=== PATIENT | female | born 1950 | race Two or more races ===

== ENCOUNTER 2023-10-25 21:04 | Inpatient (IN) | payer OTHER ==
[~2023-10-25] VITALS: Ht 160 cm; Wt 72.7 kg
[2023-10-25 21:44] LABS: Basophils # (auto) 0.1 10 ^3/uL (0-0.2); Basophils % (auto) 0.7 % (0.0-2.0); Eosinophils # (auto) 0 10 ^3/uL (0-0.8); Eosinophils % (auto) 0.4 % (0.0-7.0); Hematocrit 32.8 % (36.0-46.0); Hemoglobin 10.6 g/dL (12.2-16.2); Lymphocytes # (auto) 1.7 10 ^3/uL (0.4-5.4); Lymphocytes % (auto) 14.2 % (10.0-50.0); Mean Corpuscular Hemoglobin 28.2 pg (28.0-32.0); Mean Corpuscular Hgb Conc. 32.2 g/dL (32.0-36.0); Mean Corpuscular Volume 87.4 fL (80.0-100.0); Monocytes # (auto) 1.5 10 ^3/uL (0-1.3); Monocytes % (auto) 12.5 % (0.0-12.0); Neutrophils # (auto) 8.5 10 ^3/uL (1.6-8.6); Neutrophils % (auto) 72.2 % (37.0-80.0); Nucleated Red Blood Cells % 0.1 %; Red Blood Cells 3.75 10^6/uL (4.0-5.20); Red Cell Distribution Width 15.7 % (11.8-14.3); White Blood Cell 11.8 10^3/uL (4.4-10.8)
[2023-10-25 21:56] LABS: Alanine Aminotransferase 10 U/L (7-40); Alkaline Phosphatase 59 U/L (46-116); Anion Gap 9 (5-15); Aspartate Aminotransferase 13 U/L (13-40); BUN/Creatinine Ratio 13.2 (10.0-20.0); Blood Urea Nitrogen 9 mg/dL (9-23); Calcium 9.8 mg/dL (8.7-10.4); Carbon Dioxide 25 mmol/L (20-30); Chloride 101 mmol/L (98-107); Glucose 175 mg/dL (74-106); Magnesium 1.8 mg/dL (1.6-2.6); Potassium 4.1 mmol/L (3.5-5.1); Sodium 135 mmol/L (136-145)
[2023-10-25 21:57] LABS: Bilirubin, Total 0.3 mg/dL (0.2-1.0); Total Protein 6.5 g/dL (5.7-8.2)
[2023-10-25] MEDS: dilTIAZem 25 MG/5 ML VIAL IV ONE ×2 (22:06→22:51)
[2023-10-25 22:11] VITALS: PULSE 167; O2SAT 96
[2023-10-25 22:22] LABS: INR 1.06 (0.9-1.15); Prothrombin Time 11.2 sec (9.3-11.8)
[2023-10-25] MEDS: AZITHROMYCIN 500MG/ 250ML 250 ML IV ONE (23:00)
[2023-10-25] MEDS ORDERED: DEXTROSE (50%) 50ML SYRG IV PRN (23:15)
[2023-10-25] MEDS ORDERED: ACETAMINOPHEN 325 MG TAB PO PRN (23:15)
[2023-10-25] MEDS: FUROSEMIDE 40 MG/4 ML VIAL IV ONE (23:41)
[2023-10-25] MEDS ORDERED: MORPHINE SULFATE INJ 2 MG/ml SYRG IV PRN (23:45)
[2023-10-25] MEDS ORDERED: NITROGLYCERIN 0.4 MG SL TAB SL PRN (23:45)
[2023-10-26] VITALS (8 sets, daily range): BP systolic 107–129; BP diastolic 57–71; PULSE 69–120; RESP 16–19; TEMP 97.9–98.6; O2SAT 93–97
[2023-10-26] MEDS ORDERED: OXYB5TAB14 PO (04:27)
[2023-10-26] MEDS ORDERED: GLIP5TAB21 PO (04:27)
[2023-10-26] MEDS ORDERED: LOSA-534 PO (04:27)
[2023-10-26] MEDS ORDERED: METF-370 PO (04:27)
[2023-10-26] MEDS ORDERED: CARB25TA77 PO (04:27)
[2023-10-26] MEDS ORDERED: SERT100T PO (04:27)
[2023-10-26] MEDS ORDERED: ATOR-47 PO (04:27)
[2023-10-26] MEDS ORDERED: GAB100C PO (04:27)
[2023-10-26] MEDS: dilTIAZem HCL 60 MG TAB PO SCH (04:44)
[2023-10-26] MEDS: SODIUM CHLOR 0.9% PF (SALINE LOCK) 10ML VIAL/SYR IV SCH (06:17)
[2023-10-26] MEDS: ACCU-CHEK COMFORT CURVE STRIP VI SCH (06:17)
[2023-10-26] MEDS: InsuLIN REG 1unit/0.01ml Soln (100units/ml) SC SCH ×2 (06:21→21:30)
[2023-10-26 07:08] LABS: Basophils # (auto) 0.1 10 ^3/uL (0-0.2); Basophils % (auto) 0.8 % (0.0-2.0); Eosinophils # (auto) 0 10 ^3/uL (0-0.8); Eosinophils % (auto) 0.6 % (0.0-7.0); Hematocrit 30.6 % (36.0-46.0); Hemoglobin 9.9 g/dL (12.2-16.2); Lymphocytes # (auto) 1.5 10 ^3/uL (0.4-5.4); Lymphocytes % (auto) 18.4 % (10.0-50.0); Mean Corpuscular Hemoglobin 28.1 pg (28.0-32.0); Mean Corpuscular Hgb Conc. 32.4 g/dL (32.0-36.0); Mean Corpuscular Volume 86.8 fL (80.0-100.0); Monocytes # (auto) 1.3 10 ^3/uL (0-1.3); Monocytes % (auto) 15.6 % (0.0-12.0); Neutrophils # (auto) 5.3 10 ^3/uL (1.6-8.6); Neutrophils % (auto) 64.6 % (37.0-80.0); Nucleated Red Blood Cells % 0.1 %; Red Blood Cells 3.52 10^6/uL (4.0-5.20); Red Cell Distribution Width 15.7 % (11.8-14.3); White Blood Cell 8.2 10^3/uL (4.4-10.8)
[2023-10-26 07:30] LABS: Alanine Aminotransferase 10 U/L (7-40); Albumin 3.9 g/dL (3.2-4.8); Alkaline Phosphatase 54 U/L (46-116); Anion Gap 6 (5-15); Aspartate Aminotransferase 10 U/L (13-40); BUN/Creatinine Ratio 14.5 (10.0-20.0); Bilirubin, Total 0.3 mg/dL (0.2-1.0); Blood Urea Nitrogen 9 mg/dL (9-23); Calcium 9.2 mg/dL (8.5-10.1); Carbon Dioxide 28 mmol/L (20-30); Chloride 101 mmol/L (98-107); Glucose 152 mg/dL (74-106); Potassium 3.6 mmol/L (3.5-5.1); Sodium 135 mmol/L (136-145)
[2023-10-26] MEDS: ASPirin 81 mg TAB PO SCH (10:00)
[2023-10-26] MEDS: FUROSEMIDE 40 MG/4 ML VIAL IV SCH (10:01)
[2023-10-26] MEDS ORDERED: IOHEXOL 350 MG/ML 100ML IJ ONE (10:18)
[2023-10-26 11:22] LABS: Triglycerides 130 mg/dL (< 150)
[2023-10-26 11:23] LABS: LDL Cholesterol 59 mg/dL (< 100)
[2023-10-26 11:24] LABS: Cholesterol 123 mg/dL (< 200); HDL Cholesterol 37 mg/dL (40-59)
[2023-10-26] MEDS: AMIODARONE BOLUS KIT 100 ML IV ONE (11:38)
[2023-10-26] MEDS: AMIODARONE 450mg/250ml AE 250 ML IV SCH ×2 (11:51→18:05)
[2023-10-26] MEDS: levoFLOXacin 500MG 100 ML IV ONE (12:55)
[2023-10-26] MEDS: MAGNESIUM SULFATE 1GM/100ML 100 ML IV ONE (12:55)
[2023-10-26] MEDS: POTASSIUM EFFERVESENT TAB 25 MEQ PO ONE (12:55)
[2023-10-26] MEDS: ENOXAPARIN SOD 40 MG/0.4 ML SYRINGE SC ONE (12:56)
[2023-10-26] MEDS ORDERED: AZITHROMYCIN 500MG/ 250ML 250 ML IV SCH (21:00)
[2023-10-26] MEDS: CARBIDOPA W LEVODOPA 25/100mg TABLET PO PRN (21:26)
[2023-10-26] MEDS: ATORVASTATIN 20 MG TAB PO SCH (21:27)
[2023-10-27] VITALS (7 sets, daily range): BP systolic 103–155; BP diastolic 56–73; PULSE 77–110; RESP 18–20; TEMP 97–98.4; O2SAT 94
[2023-10-27] MEDS: HYDROcodone-ACET 5/325MG TAB PO PRN (01:20)
[2023-10-27] MEDS: hydrALAZINE HCL 20 MG/ML VL IV PRN (05:24)
[2023-10-27] MEDS: ONDANSETRON HCL 4 MG/2 ML VIAL IV PRN (07:13)
[2023-10-27 08:00] LABS: Basophils # (auto) 0 10 ^3/uL (0-0.2); Basophils % (auto) 0.3 % (0.0-2.0); Eosinophils # (auto) 0 10 ^3/uL (0-0.8); Eosinophils % (auto) 0.5 % (0.0-7.0); Hematocrit 33.9 % (36.0-46.0); Hemoglobin 11.1 g/dL (12.2-16.2); Lymphocytes # (auto) 1.7 10 ^3/uL (0.4-5.4); Lymphocytes % (auto) 20.1 % (10.0-50.0); Mean Corpuscular Hemoglobin 28.8 pg (28.0-32.0); Mean Corpuscular Hgb Conc. 32.8 g/dL (32.0-36.0); Mean Corpuscular Volume 87.8 fL (80.0-100.0); Monocytes # (auto) 1.1 10 ^3/uL (0-1.3); Monocytes % (auto) 13.4 % (0.0-12.0); Neutrophils # (auto) 5.6 10 ^3/uL (1.6-8.6); Neutrophils % (auto) 65.7 % (37.0-80.0); Nucleated Red Blood Cells % 0.1 %; Red Blood Cells 3.86 10^6/uL (4.0-5.20); Red Cell Distribution Width 15.7 % (11.8-14.3); White Blood Cell 8.5 10^3/uL (4.4-10.8)
[2023-10-27 08:13] LABS: Alanine Aminotransferase < 9 U/L (7-40); Albumin 4.2 g/dL (3.2-4.8); Alkaline Phosphatase 59 U/L (46-116); Anion Gap 8 (5-15); Aspartate Aminotransferase 12 U/L (13-40); BUN/Creatinine Ratio 11.3 (10.0-20.0); Blood Urea Nitrogen 7 mg/dL (9-23); Calcium 9.5 mg/dL (8.5-10.1); Carbon Dioxide 25 mmol/L (20-30); Chloride 101 mmol/L (98-107); Cholesterol 141 mg/dL (< 200); Glucose 206 mg/dL (74-106); LDL Cholesterol 71 mg/dL (< 100); Magnesium 1.9 mg/dL (1.6-2.6); Potassium 3.1 mmol/L (3.5-5.1); Sodium 134 mmol/L (136-145); Triglycerides 129 mg/dL (< 150)
[2023-10-27 08:14] LABS: Bilirubin, Total 0.4 mg/dL (0.2-1.0); HDL Cholesterol 43 mg/dL (40-59); Total Protein 6.5 g/dL (5.7-8.2)
[2023-10-27] MEDS: POTASSIUM CHL 20 Meq TABLET PO ONE ×2 (09:02→11:21)
[2023-10-27] MEDS: ENOXAPARIN SOD 40 MG/0.4 ML SYRINGE SC SCH (09:02)
[2023-10-27] MEDS: FUROSEMIDE 40 MG/4 ML VIAL IV SCH (09:03)
[2023-10-27] MEDS: MAGNESIUM SULFATE 1GM/100ML 100 ML IV ONE (09:03)
[2023-10-27] MEDS ORDERED: POTASSIUM CHL 20 Meq TABLET PO ONE (09:45)
[2023-10-27] MEDS ORDERED: FUROSEMIDE 20 MG/2 ML VIAL IV SCH (10:00)
[2023-10-27] MEDS: levoFLOXacin 500MG 100 ML IV SCH (10:41)
[2023-10-27] MEDS: FLECAINIDE ACETATE 50 MG TAB PO ONE (12:44)
[2023-10-27] MEDS ORDERED: DIVA500T13 PO (13:10)
[2023-10-27] MEDS ORDERED: EZET10TA22 PO (13:10)
[2023-10-27] MEDS: OXYBUTYNIN CHL 5 MG TAB PO SCH (14:07)
[2023-10-27] MEDS: DOCUSATE SOD 100 MG CAP PO PRN (14:07)
[2023-10-27] MEDS: ENOXAPARIN SOD 80 MG/0.8ML SYRINGE SC ONE (14:09)
[2023-10-27] MEDS: FLECAINIDE ACETATE 50 MG TAB PO SCH (21:23)
[2023-10-28] VITALS (7 sets, daily range): BP systolic 117–129; BP diastolic 56–67; PULSE 84–97; RESP 17–19; TEMP 97.6–98.7; O2SAT 92–98
[2023-10-28] MEDS: ENOXAPARIN SOD 80 MG/0.8ML SYRINGE SC SCH (05:18)
[2023-10-28] MEDS: POTASSIUM CHL 20 Meq TABLET PO ONE (10:11)
[2023-10-28] MEDS: MAGNESIUM SULFATE 1GM/100ML 100 ML IV ONE (10:11)
[2023-10-28] MEDS: FUROSEMIDE 20 MG/2 ML VIAL IV SCH (10:12)
[2023-10-28] MEDS ORDERED: FLEC100T PO (12:56)
[2023-10-28] MEDS ORDERED: LEVO500T91 PO (12:56)
[2023-10-28] MEDS ORDERED: APIX5TAB PO (12:56)
[2023-10-28] MEDS ORDERED: ATOR10TA PO (12:59)
[2023-10-28] MEDS ORDERED: DILT120T8 PO (12:59)
[2023-10-28 15:09] LABS: Base Excess 0.3 mmol/L (-2.0-2.0)
== END 2023-10-28 17:50 | disposition home or self-care (01) | DRG 871 ==
LOC: ER 21:04 → EDBD 21:04 → TELE 23:33 → TELE-WESTW 10-26 03:00
PROVIDERS: ADMIT Nurse Practitioner Family; ATTEND Internal Medicine Geriatric Medicine
DX: A41.50 Gram-negative sepsis, unspecified (principal); J15.69 Pneumonia due to other Gram-negative bacteria; J96.01 Acute respiratory failure with hypoxia; J15.9 Unspecified bacterial pneumonia; E11.65 Type 2 diabetes mellitus with hyperglycemia; D64.9 Anemia, unspecified; I50.9 Heart failure, unspecified; I11.0 Hypertensive heart disease with heart failure; I48.0 Paroxysmal atrial fibrillation; G25.81 Restless legs syndrome; F32.A Depression, unspecified; G40.909 Epilepsy, unspecified, not intractable, without status epilepticus; E78.5 Hyperlipidemia, unspecified; Z79.84 Long term (current) use of oral hypoglycemic drugs; Z83.3 Family history of diabetes mellitus; Z80.1 Family history of malignant neoplasm of trachea, bronchus and lung; Z82.49 Family history of ischemic heart disease and other diseases of the circulatory system; Z90.710 Acquired absence of both cervix and uterus
CPT/HCPCS: 36415; 36600; 70450; 71045; 71275; 80053; 80061; 82805; 82962; 83036; 83735; 83880; 84443; 84484; 85025; 85610; 85730; 93005; 93306; G0378; J1815; J1956; J2405